=== PATIENT | male | born 1930 | race Caucasian/White ===

== ENCOUNTER → 2016-08-11 | Outpatient (CLI) | payer MEDICARE, OTHER ==
[~2016-08-11] MED LIST: 5-FU; ALDACTONE25 MG PO; CATAPRES0.1 MG PO; CENTRUM SILVER1 TAB PO; COMPAZINE10 MG PO; COREG25 MG PO; COUMADIN ** IA5 MG PO; COUMADIN **IA2.5 MG PO; COUMADIN **IA7.5 MG PO; DIOVAN320 MG PO; EXFORGE 10-3201 EACH PO; EXFORGE HCT 101 EACH PO; FEOSOL325 MG PO; FISH OIL 1,0001 EACH PO; FLOMAX0.4 MG PO; FLORASTOR250 MG PO; HYDROCODON-ACE1 EAC2 PO; IMDUR30 MG PO; LASIX40 MG PO; LEVAQUIN 250 M250 MG PO; LEXAPRO10 MG PO; LOVENOX 8080 MG/0.8 SUB-Q; LOVENOX80 MG/0.8 SUB-Q; NORCO 5-325 MG1 TAB PO; NORVASC2.5 MG PO; PLAVIX75 MG PO; PRAVASTATIN SOD10 MG PO; PREPARATION H O57 GM R; PRILOSEC20 MG PO; PROSTATE HEALT1 EACH PO; PROTONIX40 MG PO; STOOL SOFTENER100 MG PO; THERA-VITE W/ B1 TAB PO
== END | disposition disaster alternative care site (69) ==
LOC: GRAD 13:40
DX: C67.4 Malignant neoplasm of posterior wall of bladder (principal)

== ENCOUNTER → 2016-09-22 | Outpatient (CLI) | payer MEDICARE, OTHER ==
[2016-09-22 17:01] LABS: BASOPHIL % 0.6 %; EOSINOPHIL # 0.4 K/uL (0.0-0.5); EOSINOPHIL % 8.1 %; HEMATOCRIT 40.2 % (33.0-50.0); HEMOGLOBIN 12.7 g/dL (11.0-16.0); IMMATURE GRANULOCYTE % 0.4 %; LYMPHOCYTE # 0.5 K/uL (0.8-4.0); LYMPHOCYTE % 10.4 %; MCH 31.8 pg (27.0-34.0); MCHC 31.6 gm/dL (32.0-36.5); MCV 100.8 fl (83.0-98.0); MONOCYTE # 0.6 K/uL (0.0-1.0); MPV 11.9 fl (9.4-12.4); NEUTROPHIL # (ANC) 3.3 K/uL (1.4-9.0); NEUTROPHIL % 68.5 %; NRBC % 0 /100WBC (0-0.00); PLATELET COUNT 145 K/uL (150-450); RBC 3.99 M/uL (3.50-5.50); WBC 4.8 K/uL (4.0-11.0)
[2016-09-22 17:16] LABS: ALBUMIN 3.4 gm/dL (3.5-5.0); ANION GAP 9.2 (10.0-19.0); CALCIUM 8.5 mg/dL (8.5-10.5); CREATININE 1.3 mg/dL (0.6-1.3); POTASSIUM 4.2 mMol/L (3.7-5.1); TOTAL BILIRUBIN 0.5 mg/dL (0.0-1.5); TOTAL PROTEIN 7.3 g/dL (6.0-8.4)
== END | disposition disaster alternative care site (69) ==
LOC: LNHI 16:47
PROVIDERS: Internal Medicine Cardiovascular Disease
DX: R53.83 Other fatigue (principal); I25.10 Atherosclerotic heart disease of native coronary artery without angina pectoris